=== PATIENT | male | born 1945 | race Caucasian/White ===

== ENCOUNTER → 2017-01-22 | Outpatient (CLI) | payer MEDICARE, OTHER ==
[2017-01-22 12:27] LABS: CREATININE FOR GFR 1.48 MG/DL (0.70-1.30); GLOMERULAR FILTRATION RATE 49.6 (>42); POTASSIUM SERUM 4.1 MEQ/L (3.5-5.1)
--- NOTE | 2017-01-22 13:34 | REP ---
CHEST, TWO VIEWS: HISTORY: Left cataract. COMPARISON: 02/04/2015. The lungs are clear. The cardiac silhouette is enlarged. The pulmonary vasculature is normal in appearance. Degenerative change is present in the thoracic spine. IMPRESSION: Cardiomegaly. Signed by Thaddeus Maier MD 01/22/2017 01:42 P
--- NOTE | 2017-01-22 15:04 | ECGEPIP ---
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
== END ==
LOC: M LAB 10:58
PROVIDERS: ATTEND Ophthalmology
DX: H25.12 Age-related nuclear cataract, left eye (principal); I10 Essential (primary) hypertension; E11.9 Type 2 diabetes mellitus without complications

== ENCOUNTER → 2018-11-25 | Outpatient (CLI) | payer MEDICARE, OTHER ==
[2018-11-25 10:40] LABS: ALBUMIN 3.8 GM/DL (3.2-5.2); BILIRUBIN,TOTAL 0.6 MG/DL (0.2-1.0); CALCIUM LEVEL 8.7 MG/DL (8.8-10.2); CHOLESTEROL RISK RATIO 4.257 (<5); CREATININE FOR GFR 1.63 MG/DL (0.70-1.30); GLOMERULAR FILTRATION RATE 44.2 (>42); POTASSIUM SERUM 4.3 MEQ/L (3.5-5.1); URIC ACID 6.3 MG/DL (3.5-7.2)
[2018-11-25 10:48] LABS: HEMOGLOBIN A1c 7.1 %
== END ==
LOC: M LAB 09:34
PROVIDERS: ATTEND Internal Medicine
DX: E11.9 Type 2 diabetes mellitus without complications (principal); I10 Essential (primary) hypertension; M10.9 Gout, unspecified; E78.5 Hyperlipidemia, unspecified

== ENCOUNTER → 2019-03-05 | Outpatient (REF) | payer MEDICARE, OTHER | LOC: M LAB REF 15:37 | PROVIDERS: ATTEND Internal Medicine Gastroenterology | DX: D22.111 Melanocytic nevi of right upper eyelid, including canthus (principal) ==

== ENCOUNTER → 2020-05-11 | Outpatient (CLI) | payer MEDICARE, OTHER ==
--- NOTE | 2020-05-11 17:47 | REP ---
INDICATION: CKD STAGE 3B. COMPARISON: 10/28/2005. TECHNIQUE: Real-time sonographic evaluation of the kidneys is performed. FINDINGS: Renal cortical echogenicity pattern is normal bilaterally and contours are smooth. There is no evidence of hydronephrosis, cyst, mass, or calculus in either kidney. The right kidney measures 10.6 x 4.0 x 5.1 cm. Left renal dimensions are 11.8 x 4.5 x 5.6 cm. The urinary bladder is empty. IMPRESSION: Normal urinary tract sonography. <Electronically signed by Magdaleno Melara > 05/11/20 [id number]
== END ==
LOC: M RAD 13:23
PROVIDERS: ATTEND Internal Medicine Nephrology
DX: N18.32 Chronic kidney disease, stage 3b (principal)

== ENCOUNTER → 2020-09-07 | Outpatient (REF) | payer MEDICARE, OTHER ==
[2020-09-07 19:03] LABS: BACTERIA, URINE AUTO NEGATIVE (NEGATIVE); RBC, URINE AUTO 5 /HPF (0-3); SQUAMOUS EPITHELIAL CELL UR AU 0 /HPF (0-6); WBC, URINE AUTO 1 /HPF (0-3)
== END ==
LOC: M LAB REF 17:02
PROVIDERS: ATTEND Internal Medicine Nephrology
DX: N18.32 Chronic kidney disease, stage 3b (principal); E11.22 Type 2 diabetes mellitus with diabetic chronic kidney disease

== ENCOUNTER → 2021-04-11 | Outpatient (REF) | payer MEDICARE, OTHER | LOC: M LAB REF 17:36 | PROVIDERS: ATTEND Internal Medicine Nephrology | DX: E83.42 Hypomagnesemia (principal) ==

== ENCOUNTER → 2022-02-09 | Outpatient (REF) | payer MEDICARE, OTHER | LOC: M SFHCDERM 11:35 | PROVIDERS: ATTEND Dermatology | DX: Z48.02 Encounter for removal of sutures (principal) ==

== ENCOUNTER → 2023-12-26 | Outpatient (CLI) | payer OTHER ==
[~2023-12-26] MED LIST: ALLO100T PO; AMLO1TAB24 PO; ASPI-226 PO; ATOR80TA59 PO; CALC1CAP31 PO; CARV25TA PO; FURO40TA2 PO; GABA-282 PO; JANU50TA8 PO; JARD1TAB PO; OMEP-173 PO; SYNT75TA PO; TAMS1CAP17 PO
[2023-12-26 11:40] LABS: BASO % 0.4 % (0.0-1.0); EOS # 0.1 10^3/uL (0.0-0.5); EOS % 1.2 % (0.0-3.0); HEMATOCRIT 43.8 % (42.0-52.0); HEMOGLOBIN 14.7 g/dl (13.5-17.5); LYMPH # 1.3 10^3/uL (1.5-5.0); LYMPH % 17.4 % (24.0-44.0); MEAN CORPUSCULAR HEMOGLOBIN 32.5 pg (27.0-33.0); MEAN CORPUSCULAR HGB CONC 33.6 g/dl (32.0-36.5); MEAN CORPUSCULAR VOLUME 96.9 fl (80.0-96.0); MONO # 0.5 10^3/uL (0.0-0.8); MONO % 6.7 % (2.0-8.0); NEUTROPHILS # 5.4 10^3/uL (1.5-8.5); NEUTROPHILS % 73.7 % (36.0-66.0); PLATELET COUNT, AUTOMATED 213 10^3/uL (150-450); RED BLOOD COUNT 4.52 10^6/uL (4.30-6.10); WHITE BLOOD COUNT 7.3 10^3/uL (4.0-10.0)
[2023-12-26 11:55] LABS: CALCIUM LEVEL 9.4 MG/DL (8.3-10.6); CREATININE FOR GFR 1.43 MG/DL (0.70-1.30); GLOMERULAR FILTRATION RATE 50.8 (>42); POTASSIUM SERUM 4.7 MMOL/L (3.5-5.1)
== END ==
LOC: M LAB 10:22
PROVIDERS: ATTEND Podiatrist
DX: M79.642 Pain in left hand (principal); M20.42 Other hammer toe(s) (acquired), left foot

== ENCOUNTER 2024-01-04 12:30 | Day surgery (SDC) | payer OTHER ==
[~2024-01-04] VITALS: Ht 167.6 cm; Wt 87.8 kg
[2024-01-04] MEDS ORDERED: LIDOCAINE 2% 100MG/5ML SDV (FOR ANES.) As Ordered ONE (13:07)
[2024-01-04] MEDS ORDERED: dexmedeTOMIDine (4MCG/ML)200MCG/50ML BTL (PRECEDEX) As Ordered ONE (13:07)
[2024-01-04] MEDS ORDERED: fentaNYL 100 MCG/2 ML INJECTION As Ordered ONE (13:07)
[2024-01-04] MEDS ORDERED: MIDAZOLAM INJ 2MG/2ML VIAL As Ordered ONE (13:07)
[2024-01-04] MEDS ORDERED: ONDANSETRON 4MG 2ML VIAL As Ordered ONE (13:07)
[2024-01-04] MEDS: LR 1,000 ML IV SCH (13:43)
[2024-01-04] MEDS: ceFAZolin SOD 2 GM in IV 1 EA IV ONE (16:23)
[2024-01-04] MEDS: LIDOCAINE 2% MDV 20ML VIAL As Ordered ONE (16:26)
[2024-01-04] MEDS ORDERED: hydrALAZINE 20MG/ML 1ML VIAL As Ordered ONE (18:20)
[2024-01-04] MEDS ORDERED: ACETAMINOPHEN 1000MG 100ML IV BAG As Ordered ONE (18:25)
[2024-01-04 19:45] VITALS: BP 158/84; TEMP 97.5; O2SAT 96
== END 2024-01-04 19:50 | disposition home or self-care (01) ==
LOC: M SDC 12:30
PROVIDERS: ATTEND Podiatrist
DX: M20.42 Other hammer toe(s) (acquired), left foot (principal); I25.2 Old myocardial infarction; I25.10 Atherosclerotic heart disease of native coronary artery without angina pectoris; Z98.61 Coronary angioplasty status; E78.5 Hyperlipidemia, unspecified; I12.9 Hypertensive chronic kidney disease with stage 1 through stage 4 chronic kidney disease, or unspecified chronic kidney disease; N18.30 Chronic kidney disease, stage 3 unspecified; E11.9 Type 2 diabetes mellitus without complications; M10.9 Gout, unspecified; E03.9 Hypothyroidism, unspecified; K44.9 Diaphragmatic hernia without obstruction or gangrene; K21.9 Gastro-esophageal reflux disease without esophagitis; G47.33 Obstructive sleep apnea (adult) (pediatric); Z79.82 Long term (current) use of aspirin; Z79.899 Other long term (current) drug therapy
CPT/HCPCS: 28820; 73660; 76000; 88300; J0131; J0360; J0665; J0690; J2250; J2405; J3010

== ENCOUNTER → 2024-06-24 | Outpatient (CLI) | payer OTHER ==
[~2024-06-24] MED LIST changes: +GABA-1172 PO; -GABA-282 PO
== END ==
LOC: M CARPUL 11:43
PROVIDERS: ATTEND Registered Nurse
DX: I34.0 Nonrheumatic mitral (valve) insufficiency (principal); R06.02 Shortness of breath

== ENCOUNTER 2024-10-03 09:53 | Inpatient (IN) | payer MEDICARE, OTHER ==
[~2024-10-03] VITALS: Ht 167.6 cm; Wt 79.7 kg
[2024-10-03] MEDS ORDERED: FINA5TAB2 PO (10:31)
[2024-10-03] MEDS ORDERED: PANT40TA29 PO (10:31)
[2024-10-03] MEDS ORDERED: DULA3PEN INJ (10:31)
[2024-10-03 10:52] LABS: VENOUS BASE EXCESS 2.7 (-2.0-2.0); VENOUS O2 SATURATION 45.9 % (60.0-80.0); VENOUS PARTIAL PRESSURE CO2 58.7 mmHg (38.0-50.0); VENOUS PARTIAL PRESSURE O2 27.9 mmHg (30.0-50.0); VENOUS PH 7.327 UNITS (7.330-7.430); VENOUS STANDARD HCO3 25.6 MMOL/L; VENOUS TOTAL CO2 31.8 MMOL/L (24.0-28.0)
[2024-10-03 11:07] LABS: BASO % 0.2 % (0.0-1.0); EOS # 0.1 10^3/uL (0.0-0.5); EOS % 1.3 % (0.0-3.0); HEMATOCRIT 37.6 % (42.0-52.0); HEMOGLOBIN 12.5 g/dl (13.5-17.5); LYMPH # 1.1 10^3/uL (1.5-5.0); LYMPH % 12.4 % (24.0-44.0); MEAN CORPUSCULAR HEMOGLOBIN 33.2 pg (27.0-33.0); MEAN CORPUSCULAR HGB CONC 33.2 g/dl (32.0-36.5); MEAN CORPUSCULAR VOLUME 99.7 fl (80.0-96.0); MONO # 0.5 10^3/uL (0.0-0.8); MONO % 5.8 % (2.0-8.0); NEUTROPHILS # 6.9 10^3/uL (1.5-8.5); NEUTROPHILS % 79.9 % (36.0-66.0); PLATELET COUNT, AUTOMATED 182 10^3/uL (150-450); RED BLOOD COUNT 3.77 10^6/uL (4.30-6.10); WHITE BLOOD COUNT 8.6 10^3/uL (4.0-10.0)
[2024-10-03 11:27] LABS: ALBUMIN 3.4 G/DL (3.2-5.2); BILIRUBIN,DIRECT 0.2 MG/DL (<0.4); BILIRUBIN,TOTAL 0.5 MG/DL (0.3-1.2); CALCIUM LEVEL 8.9 MG/DL (8.3-10.6); CREATININE FOR GFR 1.97 MG/DL (0.70-1.30); POTASSIUM SERUM 3.8 MMOL/L (3.5-5.1); TOTAL PROTEIN 7.9 G/DL (5.7-8.2)
[2024-10-03 11:28] LABS: THYROID STIMULATING HORMONE 1.634 uIU/ML (0.55-4.78)
[2024-10-03 13:14] LABS: CK-MB VALUE MASS 1.2 NG/ML (<3.6)
[2024-10-03 13:15] LABS: MB/CK RELATIVE INDEX 1.23 (< OR =4)
[2024-10-03 13:32] LABS: KETONE, URINE AUTO RFX NEGATIVE (NEGATIVE); NITRITE, URINE AUTO RFX NEGATIVE (NEGATIVE); RBC, URINE AUTO RFX 3 /HPF (0-3); SQUAM EPITHELIAL CELL UR AURFX 0 /HPF (0-6)
[2024-10-03 14:07] LABS: CK-MB VALUE MASS < 1.0 NG/ML (<3.6)
[2024-10-03 14:08] LABS: LEUKOCYTE ESTERASE UR AUTO RFX 3+ (NEGATIVE); WBC, URINE AUTO RFX TNTC /HPF (0-3)
[2024-10-03 14:09] LABS: CPK CREATINE PHOSPHOKINASE 85 U/L (46-171); MB/CK RELATIVE INDEX 1.17 (< OR =4)
[2024-10-03] MEDS: cefTRIAXone SOD 1 GM in DEXTROSE 5% (D5W) ADV/MINI-BAG 50 ML IV ONE (14:25)
[2024-10-03 15:20] VITALS: O2SAT 96
[2024-10-03] MEDS ORDERED: HOME MED LIST COMPLETE! XX SCH (16:25)
[2024-10-03] MEDS ORDERED: GLUCAGON INJ 1MG VIAL SC PRN (17:05)
[2024-10-03] MEDS ORDERED: GLUCOSE 4 GM CHEW PO PRN (17:05)
[2024-10-03] MEDS ORDERED: DEXTROSE 50% 50ML SYRINGE IV PRN (17:05)
[2024-10-03] MEDS: LR 1,000 ML IV ONE (17:44)
[2024-10-03] MEDS: INSULIN LISPRO (NovoLOG) PER UNIT SC SCH ×2 (17:45→20:42)
[2024-10-03 20:30] VITALS: BP 150/73; TEMP 97.7; O2SAT 97
[2024-10-03] MEDS: GABAPENTIN 300 MG CAP PO SCH (20:41)
[2024-10-03] MEDS: PANTOPRAZOLE 40MG TAB (PROTONIX) PO SCH (20:41)
[2024-10-03] MEDS: TAMSULOSIN 0.4 MG CAP PO SCH (20:41)
[2024-10-03 22:40] LABS: CK-MB VALUE MASS < 1.0 NG/ML (<3.6)
[2024-10-03 22:42] LABS: CPK CREATINE PHOSPHOKINASE 82 U/L (46-171); MB/CK RELATIVE INDEX 1.21 (< OR =4)
[2024-10-03 22:44] LABS: VITAMIN B12 LEVEL 834 PG/ML (211-911)
[2024-10-04 01:37] LABS: CK-MB VALUE MASS < 1.0 NG/ML (<3.6)
[2024-10-04 01:39] LABS: CPK CREATINE PHOSPHOKINASE 78 U/L (46-171); MB/CK RELATIVE INDEX 1.28 (< OR =4)
[2024-10-04 04:15] VITALS: BP 123/67; TEMP 97.6; O2SAT 95
[2024-10-04] MEDS: LEVOTHYROXINE 75MCG TABLET (0.075MG) PO SCH (06:09)
[2024-10-04 08:01] LABS: BASO % 0.3 % (0.0-1.0); EOS # 0.1 10^3/uL (0.0-0.5); HEMATOCRIT 33.8 % (42.0-52.0); HEMOGLOBIN 11.4 g/dl (13.5-17.5); LYMPH % 16.3 % (24.0-44.0); MEAN CORPUSCULAR HEMOGLOBIN 32.7 pg (27.0-33.0); MEAN CORPUSCULAR HGB CONC 33.7 g/dl (32.0-36.5); MEAN CORPUSCULAR VOLUME 96.8 fl (80.0-96.0); MONO # 0.4 10^3/uL (0.0-0.8); MONO % 7.2 % (2.0-8.0); NEUTROPHILS # 4.4 10^3/uL (1.5-8.5); NEUTROPHILS % 73.9 % (36.0-66.0); PLATELET COUNT, AUTOMATED 161 10^3/uL (150-450); RED BLOOD COUNT 3.49 10^6/uL (4.30-6.10)
[2024-10-04 08:23] LABS: CALCIUM LEVEL 9.3 MG/DL (8.3-10.6); CREATININE FOR GFR 1.68 MG/DL (0.70-1.30); GLOMERULAR FILTRATION RATE 42.1 (>35); POTASSIUM SERUM 3.9 MMOL/L (3.5-5.1)
[2024-10-04] MEDS: allopurinoL 100 MG TAB PO SCH (08:50)
[2024-10-04] MEDS: FINASTERIDE 5MG TAB PO SCH (08:50)
[2024-10-04] MEDS: ASPIRIN 81MG ENTERIC TABLET PO SCH (08:50)
[2024-10-04] MEDS: ATORVASTATIN 20 MG TAB PO SCH (08:52)
[2024-10-04 08:55] LABS: HEMOGLOBIN A1c 6.6 % (4.0-6.0)
[2024-10-04 12:13] VITALS: BP 109/65; TEMP 97.5; O2SAT 96
[2024-10-04] MEDS ORDERED: cefTRIAXone SOD 1 GM in DEXTROSE 5% (D5W) ADV/MINI-BAG 50 ML IV SCH (14:00)
[2024-10-04] MEDS: cefTRIAXone SOD 1 GM in DEXTROSE 5% (D5W) ADV/MINI-BAG 50 ML IV SCH (15:16)
[2024-10-04] MEDS ORDERED: BACI1CAP PO (17:39)
[2024-10-04] MEDS ORDERED: CEFP200T PO (17:39)
[2024-10-04] MEDS ORDERED: METH-855 PO (17:40)
[2024-10-04] MEDS: GABAPENTIN 300 MG CAP PO SCH (18:44)
[2024-10-04 20:00] VITALS: BP 109/61; TEMP 98; O2SAT 96
[2024-10-05 05:02] VITALS: BP 112/63; TEMP 97.9; O2SAT 96
[2024-10-05 07:15] LABS: BASO % 0.5 % (0.0-1.0); EOS # 0.1 10^3/uL (0.0-0.5); EOS % 2.2 % (0.0-3.0); HEMATOCRIT 35.9 % (42.0-52.0); HEMOGLOBIN 11.6 g/dl (13.5-17.5); LYMPH # 1.2 10^3/uL (1.5-5.0); LYMPH % 18.2 % (24.0-44.0); MEAN CORPUSCULAR HEMOGLOBIN 32.2 pg (27.0-33.0); MEAN CORPUSCULAR HGB CONC 32.3 g/dl (32.0-36.5); MEAN CORPUSCULAR VOLUME 99.7 fl (80.0-96.0); MONO # 0.4 10^3/uL (0.0-0.8); MONO % 6.6 % (2.0-8.0); NEUTROPHILS # 4.6 10^3/uL (1.5-8.5); PLATELET COUNT, AUTOMATED 164 10^3/uL (150-450); WHITE BLOOD COUNT 6.4 10^3/uL (4.0-10.0)
[2024-10-05 07:36] LABS: CALCIUM LEVEL 8.3 MG/DL (8.3-10.6); CREATININE FOR GFR 1.64 MG/DL (0.70-1.30); GLOMERULAR FILTRATION RATE 43.2 (>35); POTASSIUM SERUM 3.8 MMOL/L (3.5-5.1)
== END 2024-10-05 13:04 | disposition home health service (06) | DRG 682 ==
LOC: M ED 09:53 → M ED INP 16:17 → M MS4PR 20:29
PROVIDERS: ADMIT General Practice; ATTEND General Practice
DX: N17.9 Acute kidney failure, unspecified (principal); G93.41 Metabolic encephalopathy; N39.0 Urinary tract infection, site not specified; I12.9 Hypertensive chronic kidney disease with stage 1 through stage 4 chronic kidney disease, or unspecified chronic kidney disease; E11.42 Type 2 diabetes mellitus with diabetic polyneuropathy; E11.22 Type 2 diabetes mellitus with diabetic chronic kidney disease; N18.30 Chronic kidney disease, stage 3 unspecified; I25.10 Atherosclerotic heart disease of native coronary artery without angina pectoris; I25.2 Old myocardial infarction; M75.31 Calcific tendinitis of right shoulder; R26.89 Other abnormalities of gait and mobility; D53.9 Nutritional anemia, unspecified; M47.814 Spondylosis without myelopathy or radiculopathy, thoracic region; N13.30 Unspecified hydronephrosis; E78.5 Hyperlipidemia, unspecified; M10.9 Gout, unspecified; K21.9 Gastro-esophageal reflux disease without esophagitis; Z79.82 Long term (current) use of aspirin; Z95.5 Presence of coronary angioplasty implant and graft; Z95.828 Presence of other vascular implants and grafts; Z86.16 Personal history of COVID-19; Z79.890 Hormone replacement therapy; Z79.899 Other long term (current) drug therapy; R33.9 Retention of urine, unspecified; E86.0 Dehydration

== ENCOUNTER → 2025-05-13 | Outpatient (REF) | payer MEDICARE, OTHER ==
[~2025-05-13] MED LIST changes: +BACI1CAP PO; +CEFP200T PO; +DULA3PEN INJ; +FINA5TAB2 PO; +METH-1100 PO; +PANT40TA29 PO
== END ==
LOC: M LAB REF 17:04
PROVIDERS: ATTEND Podiatrist
DX: L03.039 Cellulitis of unspecified toe (principal)